=== PATIENT | female | born 1945 | race Caucasian/White ===

== ENCOUNTER 2020-07-11 01:21 | Emergency (ER) | payer MEDICARE, OTHER ==
--- NOTE | 2020-07-11 01:52 | EDM.PDOC ---
ED HPI GENERAL MEDICAL PROBLEM - General Chief Complaint: Upper Extremity Injury/Pain Stated Complaint: RT ARM INJURY Time Seen by Provider: 07/11/20 01:39 Source of Information: Reports: Patient History Limitations: Reports: No Limitations - History of Present Illness INITIAL COMMENTS - FREE TEXT/NARRATIVE: Patient is a 74-year-old female presents today for right arm pain. Patient that she is going to the bathroom and stumbled and hit the wall. Patient has the films her arm is falling apart. Patient states that her shoulder has no pain or elbows mostly the humerus. Patient denies any head or have any LOC. right arm Pain Score (Numeric/FACES): 8 - Related Data Allergies Allergy/AdvReac Type Severity Reaction Status Date / Time latex Allergy Rash Verified 07/11/20 01:33 Home Meds: Home Meds Aspirin 81 mg PO DAILY 03/24/15 [History] Diltiazem HCl [Diltiazem ER] 240 mg PO DAILY 03/24/15 [History] Lisinopril [Prinivil] 5 mg PO DAILY 03/24/15 [History] SitaGLIPtin [Januvia] 100 mg PO DAILY 03/24/15 [History] Acetaminophen [Tylenol] 650 mg PO Q6HR PRN 10 Days #40 cup 07/11/20 [Rx] Acetaminophen/oxyCODONE [Percocet 325-5 MG] 1 each PO Q8HR PRN 5 Days #15 tab 07/11/20 [Rx] Past Medical History Endocrine/Metabolic History: Reports: Hypothyroidism Social & Family History - Family History Family Medical History: No Pertinent Family History Review of Systems - Review of Systems Review Of Systems: See Below Constitutional: Reports: No Symptoms Eyes: Reports: No Symptoms Ears: Reports: No Symptoms Nose: Reports: No Symptoms Mouth/Throat: Reports: No Symptoms Respiratory: Reports: No Symptoms Cardiovascular: Reports: No Symptoms GI/Abdominal: Reports: No Symptoms Genitourinary: Reports: No Symptoms Musculoskeletal: Reports: Arm Pain Skin: Reports: No Symptoms Neurological: Reports: No Symptoms Psychiatric: Reports: No Symptoms ED EXAM, GENERAL - Physical Exam Exam: See Below Exam Limited By: No Limitations General Appearance: Alert, WD/WN, No Apparent Distress Respiratory/Chest: No Respiratory Distress Cardiovascular: Normal Peripheral Pulses, Regular Rate, Rhythm GI/Abdominal: Normal Bowel Sounds Extremities: Arm Pain. No: Normal Inspection (Obvious deformity of right humerus) Neurological: No Motor/Sensory Deficits ED TRAUMA EXTREMITY PROCEDURES - Splinting Right Upper Extremity Splint Site: humerus Pre-Procedure NV Status: Normal Post-Procedure NV Status: Normal Splint Material: Fiberglass Splint Design: Sling, Sling & Swathe Applied & Form Fitted By: Nurse Provider Post-Splint Application NV Check: NV Status Normal Complications: No Course - Vital Signs Last Recorded V/S: Last Vital Signs Temp 97.9 F 07/11/20 01:39 Pulse 89 07/11/20 01:39 Resp 16 07/11/20 01:39 BP 142/59 H 07/11/20 01:39 Pulse Ox 98 07/11/20 01:39 - Orders/Labs/Meds Meds: Medications Discontinued Medications Generic Name Dose Route Start Last Admin Trade Name Freq PRN Reason Stop Dose Admin Oxycodone/Acetaminophen 1 tab 07/11/20 02:19 07/11/20 02:26 Acetaminophen/Oxycodone 325-5 Mg Tab PO 07/11/20 02:20 1 tab ONETIME ONE Administration - Re-Assessments/Exams Free Text/Narrative Re-Assessment/Exam: 07/11/20 03:17 We spoke to [facility] orthopedics about patient's injury and he states patient can be placed in a splint and follow-up in clinic. Dr. Evans Departure - Departure Time of Disposition: 03:18 Disposition: Home, Self-Care 01 Condition: Good Clinical Impression: Humerus distal fracture - Discharge Information *PRESCRIPTION DRUG MONITORING PROGRAM REVIEWED*: Not Applicable *COPY OF PRESCRIPTION DRUG MONITORING REPORT IN PATIENT EVANGELISTA: Not Applicable Prescriptions: Acetaminophen/oxyCODONE [Percocet 325-5 MG] 1 each PO Q8HR PRN 5 Days #15 tab PRN Reason: Pain (Severe 7-10) Acetaminophen [Tylenol] 650 mg PO Q6HR PRN 10 Days #40 cup PRN Reason: Pain (Moderate 4-6) Instructions: Humerus Fracture Treated With Immobilization, [id number] Referrals: Mariann Hobson DO [Primary Care Provider] - Forms: ED Department Discharge Additional Instructions: The following information is given to patients seen in the emergency department who are being discharged to home. This information is to outline your options for follow-up care. We provide all patients seen in our emergency department with a follow-up referral. The need for follow-up, as well as the timing and circumstances, are variable depending upon the specifics of your emergency department visit. If you don't have a primary care physician on staff, we will provide you with a referral. We always advise you to contact your personal physician following an emergency department visit to inform them of the circumstance of the visit and for follow-up with them and/or the need for any referrals to a consulting specialist. The emergency department will also refer you to a specialist when appropriate. This referral assures that you have the opportunity for follow-up care with a specialist. All of these measure are taken in an effort to provide you with optimal care, which includes your follow-up. Under all circumstances we always encourage you to contact your private physician who remains a resource for coordinating your care. When calling for follow-up care, please make the office aware that this follow-up is from your recent emergency room visit. If for any reason you are refused follow-up, please contact the [facility] Emergency Department at and asked to speak to the emergency department charge nurse. Please follow up with your primary care physician. If you do not have a primary care physician, see below: Carlos Evans MD Orthopedic Surgery [phone] [address] [place] [id number] [address] You have a fracture of your humerus was the bone in your arm. You need to be seen by orthopedic surgeon in [place]. Above is the name of the surgeon that you can call and tell them that you were in the ER and if you need an appointment to be seen and you are determined to Shira this . If you have any increased pain or tingling in your arm please return to the ED immediately. Sepsis Event Note (ED) - Evaluation Sepsis Screening Result: No Definite Risk - Focused Exam Vital Signs: Vital Signs Temp Pulse Resp BP Pulse Ox 07/11/20 01:39 97.9 F 89 16 142/59 H 98 - Assessment/Plan Plan: Patient is a 74-year-old female who presents today for right arm pain. Patient has some deformity of the right humerus likely a result in her fracture. Patient has good pulse and good sensation.
[2020-07-11] MEDS ORDERED: Acetaminophen/oxyCODONE 325-5 MG Tab PO ONE (02:19)
--- NOTE | 2020-07-11 02:42 | CR ---
INDICATION: Deformity to right arm status post humerus injury from fall TECHNIQUE: Humerus radiograph 3 views right COMPARISON: None FINDINGS: Bone: There is a comminuted, angulated fracture present in the distal humeral diaphysis. Joint: The visualized glenohumeral and elbow joints are unremarkable, but the elbow joint is not profiled. If there is pain or tenderness in this region, dedicated views of the elbow are recommended. Soft tissue: The visualized hemithorax and soft tissues are unremarkable in appearance. No radiopaque foreign bodies are seen. IMPRESSION: 1. There is a comminuted, angulated fracture present in the distal humeral diaphysis. Dictated by Jones Snow MD @ 07/11/2020 2:42:13 AM Dictated by: Jones Snow MD @ 07/11/2020 02:42:16 (Electronically Signed)
[2020-07-11 04:24] VITALS: BP 141/60; PULSE 90
== END 2020-07-11 04:24 | disposition home or self-care (01) ==
LOC: MW.ED 01:21
DX: S42.491A Other displaced fracture of lower end of right humerus, initial encounter for closed fracture (principal); Z91.040 Latex allergy status; Z79.82 Long term (current) use of aspirin; Z79.899 Other long term (current) drug therapy; W18.09XA Striking against other object with subsequent fall, initial encounter; Y92.002 Bathroom of unspecified non-institutional (private) residence as the place of occurrence of the external cause
CPT/HCPCS: 29105; 73060; 99283; A9270

== ENCOUNTER 2020-07-13 13:30 | Observation (INO) | payer MEDICARE, OTHER ==
[2020-07-13] MEDS ORDERED: Sodium Chloride 0.9% 10 ML Syringe FLUSH PRN (13:35)
[2020-07-13] MEDS ORDERED: Sodium Chloride 0.9% 2.5 ML Syringe FLUSH PRN (13:35)
--- NOTE | 2020-07-13 13:46 | EDM.PDOC ---
ED HPI GENERAL MEDICAL PROBLEM - General Chief Complaint: Respiratory Problem Stated Complaint: SHORT OF BREATH Time Seen by Provider: 07/13/20 13:35 Source of Information: Reports: Patient History Limitations: Reports: No Limitations - History of Present Illness INITIAL COMMENTS - FREE TEXT/NARRATIVE: 74-year-old female past medical history of irc-leyiaqy-buvqdaazm diabetes, h ypertension presents for shortness of breath. Patient notes that a few days ago she was in the emergency department following a fall. She broke her right humerus which is currently in a sling. She has an appointment with orthopedics tomorrow. She also notes that she hit her head at this time but did not get CT imaging of her head or neck. She denies any headaches. She does note pain in her right arm. Her primary reason for coming to the emergency department today was that last night she developed shortness of breath. She denies any associated chest pain or fevers. No cough. No history of COPD or lung pathology. No swelling in her legs. No history of pulmonary embolism. Not on anticoagulation. right arm Pain Score (Numeric/FACES): 7 - Related Data Allergies Allergy/AdvReac Type Severity Reaction Status Date / Time latex Allergy Rash Verified 07/13/20 13:37 Home Meds: Home Meds Aspirin 81 mg PO DAILY 03/24/15 [History] Diltiazem HCl [Diltiazem ER] 240 mg PO DAILY 03/24/15 [History] Lisinopril [Prinivil] 5 mg PO DAILY 03/24/15 [History] SitaGLIPtin [Januvia] 100 mg PO DAILY 03/24/15 [History] Acetaminophen [Tylenol] 650 mg PO Q6HR PRN 10 Days #40 cup 07/11/20 [Rx] Acetaminophen/oxyCODONE [Percocet 325-5 MG] 1 each PO Q8HR PRN 5 Days #15 tab 07/11/20 [Rx] Past Medical History Endocrine/Metabolic History: Reports: Hypothyroidism Social & Family History - Family History Family Medical History: No Pertinent Family History - Caffeine Use Caffeine Use: Reports: None ED ROS GENERAL - Review of Systems Review Of Systems: Comprehensive ROS is negative, except as noted in HPI. ED EXAM, GENERAL - Physical Exam Exam: See Below Exam Limited By: No Limitations General Appearance: Alert, WD/WN, No Apparent Distress Eye Exam: Bilateral Eye: EOMI, PERRL Ears: Normal External Exam Nose: Normal Inspection Throat/Mouth: Normal Voice, No Airway Compromise Head: Normocephalic, Other (ecchymosis of R periorbital face) Neck: Normal Inspection, Non-Tender Respiratory/Chest: No Respiratory Distress, Lungs Clear, Normal Breath Sounds, No Accessory Muscle Use, Other (tachypneic to low 20s, speaks in full sentences) Cardiovascular: Normal Peripheral Pulses, Regular Rate, Rhythm GI/Abdominal: Soft, Non-Tender Extremities: Other (RUE in sling; no overt swelling, normal pulse, normal community center worker strength, normal sensation) Neurological: Alert, Normal Cognition Psychiatric: Normal Affect, Normal Mood Skin Exam: Warm, Dry, Intact, Normal Color #1 Interpretation EKG Date: 07/13/20 Time: 13:56 Rhythm: NSR Rate (Beats/Min): 78 [place]: Normal P-Wave: Present QRS: Normal ST-T: Normal QT: Normal MA/PQ Interval: 152 EKG Interpretation Comments: normal EKG Course - Vital Signs Last Recorded V/S: Last Vital Signs Temp 96.9 F 07/13/20 13:34 Pulse 79 07/13/20 13:34 Resp 20 07/13/20 13:34 BP 149/76 H 07/13/20 13:34 Pulse Ox 96 07/13/20 13:34 - Orders/Labs/Meds Orders: Active Orders 24 hr Category Date Time Status Cardiac Monitoring [RC] . DIRECTED Care 07/13/20 13:36 Active EKG Documentation Completion [RC] STAT Care 07/13/20 13:35 Active Pulse Oximetry [RC] ASDIRECTED Care 07/13/20 13:36 Active CORONAVIRUS COVID-19 MARIA INES [MOLEC] Stat Lab 07/13/20 16:35 Received Sodium Chloride 0.9% [Saline Flush] Med 07/13/20 13:35 Active 10 ml FLUSH ASDIRECTED PRN Sodium Chloride 0.9% [Saline Flush] Med 07/13/20 13:35 Active 2.5 ml FLUSH ASDIRECTED PRN Saline Lock Insert [OM.PC] Stat Oth 07/13/20 13:35 Ordered Medication Orders Sodium Chloride (Sodium Chloride 0.9% 10 Ml Syringe) 10 ml FLUSH ASDIRECTED PRN PRN Reason: Keep Vein Open Last Admin: 07/13/20 13:40 Dose: 10 ml Documented by: CARMEN Sodium Chloride (Sodium Chloride 0.9% 2.5 Ml Syringe) 2.5 ml FLUSH ASDIRECTED PRN PRN Reason: Keep Vein Open Last Admin: 07/13/20 13:40 Dose: 2.5 ml Documented by: CARMEN Labs: Laboratory Tests 07/13/20 07/13/20 07/13/20 Range/Units 13:45 13:45 13:45 WBC 8.59 (4.0-11.0) K/uL RBC 4.42 (4.30-5.90) M/uL Hgb 13.7 (12.0-16.0) g/dL Hct 42.1 (36.0-46.0) % MCV 95.2 (80.0-98.0) fL MCH 31.0 (27.0-32.0) pg MCHC 32.5 (31.0-37.0) g/dL RDW Std Deviation 49.1 (28.0-62.0) fl RDW Coeff of Jose 14 (11.0-15.0) % Plt Count 221 (150-400) K/uL MPV 9.80 (7.40-12.00) fL Neut % (Auto) 70.1 (48.0-80.0) % Lymph % (Auto) 14.0 L (16.0-40.0) % [place] % (Auto) 10.6 (0.0-15.0) % Eos % (Auto) 4.7 (0.0-7.0) % Baso % (Auto) 0.6 (0.0-1.5) % Neut # (Auto) 6.0 H (1.4-5.7) K/uL Lymph # (Auto) 1.2 (0.6-2.4) K/uL [place] # (Auto) 0.9 H (0.0-0.8) K/uL Eos # (Auto) 0.4 (0.0-0.7) K/uL Baso # (Auto) 0.1 (0.0-0.1) K/uL Nucleated RBC % 0.0 /100WBC Nucleated RBCs # 0 K/uL INR APTT (18.6-31.3) SEC D-Dimer, Quantitative (0.0-0.50) mg/L FEU Sodium 138 (136-145) mmol/L Potassium 4.2 (3.5-5.1) mmol/L Chloride 101 (98-107) mmol/L Carbon Dioxide 24.9 (21.0-32.0) mmol/L BUN 8 (7.0-18.0) mg/dL Creatinine 0.7 (0.6-1.0) mg/dL Est Cr Clr Drug Dosing 59.21 mL/min Estimated GFR (MDRD) > 60.0 ml/min Glucose 94 (74-106) mg/dL Calcium 9.7 (8.5-10.1) mg/dL Magnesium 1.6 L (1.8-2.4) mg/dL Total Bilirubin 0.4 (0.2-1.0) mg/dL AST 20 (15-37) IU/L ALT 22 (14-63) IU/L Alkaline Phosphatase 125 H (46-116) U/L Troponin I < 0.050 (0.000-0.056) ng/mL B-Natriuretic Peptide 3 (<100) PG/ML Total Protein 8.0 (6.4-8.2) g/dL Albumin 3.5 (3.4-5.0) g/dL Globulin 4.5 H (2.6-4.0) g/dL Albumin/Globulin Ratio 0.8 L (0.9-1.6) 07/13/20 Range/Units 14:08 WBC (4.0-11.0) K/uL RBC (4.30-5.90) M/uL Hgb (12.0-16.0) g/dL Hct (36.0-46.0) % MCV (80.0-98.0) fL MCH (27.0-32.0) pg MCHC (31.0-37.0) g/dL RDW Std Deviation (28.0-62.0) fl RDW Coeff of Jose (11.0-15.0) % Plt Count (150-400) K/uL MPV (7.40-12.00) fL Neut % (Auto) (48.0-80.0) % Lymph % (Auto) (16.0-40.0) % [place] % (Auto) (0.0-15.0) % Eos % (Auto) (0.0-7.0) % Baso % (Auto) (0.0-1.5) % Neut # (Auto) (1.4-5.7) K/uL Lymph # (Auto) (0.6-2.4) K/uL [place] # (Auto) (0.0-0.8) K/uL Eos # (Auto) (0.0-0.7) K/uL Baso # (Auto) (0.0-0.1) K/uL Nucleated RBC % /100WBC Nucleated RBCs # K/uL INR 0.99 APTT 26.0 (18.6-31.3) SEC D-Dimer, Quantitative 1.39 H (0.0-0.50) mg/L FEU Sodium (136-145) mmol/L Potassium (3.5-5.1) mmol/L Chloride (98-107) mmol/L Carbon Dioxide (21.0-32.0) mmol/L BUN (7.0-18.0) mg/dL Creatinine (0.6-1.0) mg/dL Est Cr Clr Drug Dosing mL/min Estimated GFR (MDRD) ml/min Glucose (74-106) mg/dL Calcium (8.5-10.1) mg/dL Magnesium (1.8-2.4) mg/dL Total Bilirubin (0.2-1.0) mg/dL AST (15-37) IU/L ALT (14-63) IU/L Alkaline Phosphatase (46-116) U/L Troponin I (0.000-0.056) ng/mL B-Natriuretic Peptide (<100) PG/ML Total Protein (6.4-8.2) g/dL Albumin (3.4-5.0) g/dL Globulin (2.6-4.0) g/dL Albumin/Globulin Ratio (0.9-1.6) Meds: Medications Generic Name Dose Route Start Last Admin Trade Name Freq PRN Reason Stop Dose Admin Sodium Chloride 10 ml 07/13/20 13:35 07/13/20 13:40 Sodium Chloride 0.9% 10 Ml Syringe FLUSH 10 ml ASDIRECTED PRN Administration Keep Vein Open Sodium Chloride 2.5 ml 07/13/20 13:35 07/13/20 13:40 Sodium Chloride 0.9% 2.5 Ml Syringe FLUSH 2.5 ml ASDIRECTED PRN Administration Keep Vein Open Discontinued Medications Generic Name Dose Route Start Last Admin Trade Name Pierre PRN Reason Stop Dose Admin Acetaminophen 1,000 mg 07/13/20 13:55 07/13/20 14:10 Acetaminophen 500 Mg Tab PO 07/13/20 13:56 1,000 mg ONETIME ONE Administration Sodium Chloride 1,000 mls @ 999 mls/hr 07/13/20 14:53 07/13/20 15:02 Normal Saline IV 07/13/20 15:53 999 mls/hr .Bolus ONE Administration Iopamidol 100 ml 07/13/20 15:38 07/13/20 15:39 Iopamidol 755 Mg/Ml 500 Ml Multipack Bottle IVPUSH 07/13/20 15:39 100 ml ONETIME STA Administration Lorazepam 0.5 mg 07/13/20 16:34 Lorazepam 2 Mg/Ml Sdv IVPUSH 07/13/20 16:35 ONETIME ONE Morphine Sulfate 4 mg 07/13/20 14:44 07/13/20 15:43 Morphine 4 Mg/Ml Syringe IVPUSH 07/13/20 14:45 Not Given ONETIME ONE Morphine Sulfate 4 mg 07/13/20 15:06 07/13/20 15:14 Morphine 4 Mg/Ml Syringe IVPUSH 07/13/20 15:07 4 mg ONETIME ONE Administration Ondansetron HCl 4 mg 07/13/20 15:40 07/13/20 15:43 Ondansetron 4 Mg/2 Ml Sdv IVPUSH 07/13/20 15:41 4 mg ONETIME ONE Administration - Re-Assessments/Exams Free Text/Narrative Re-Assessment/Exam: 07/13/20 14:37 D-dimer is quite elevated. Will get CT of the chest rule pulmonary embolism. 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 Will admit for obs overnight. Departure - Departure Time of Disposition: 16:43 Disposition: Home, Self-Care 01 Condition: Good Clinical Impression: Shortness of breath - Discharge Information Referrals: Mariann Hobson DO [Primary Care Provider] - Forms: ED Department Discharge Sepsis Event Note (ED) - Evaluation Sepsis Screening Result: No Definite Risk - Focused Exam Vital Signs: Vital Signs Temp Pulse Resp BP Pulse Ox 07/13/20 13:34 96.9 F 79 20 149/76 H 96 - My Orders Last 24 Hours: My Active Orders 07/13/20 13:35 EKG Documentation Completion [RC] STAT Sodium Chloride 0.9% [Saline Flush] 10 ml FLUSH ASDIRECTED PRN Sodium Chloride 0.9% [Saline Flush] 2.5 ml FLUSH ASDIRECTED PRN Saline Lock Insert [OM.PC] Stat 07/13/20 13:36 Cardiac Monitoring [RC] . DIRECTED Pulse Oximetry [RC] ASDIRECTED 07/13/20 16:35 CORONAVIRUS COVID-19 MARIA INES [MOLEC] Stat - Assessment/Plan Last 24 Hours: My Active Orders 07/13/20 13:35 EKG Documentation Completion [RC] STAT Sodium Chloride 0.9% [Saline Flush] 10 ml FLUSH ASDIRECTED PRN Sodium Chloride 0.9% [Saline Flush] 2.5 ml FLUSH ASDIRECTED PRN Saline Lock Insert [OM.PC] Stat 07/13/20 13:36 Cardiac Monitoring [RC] . DIRECTED Pulse Oximetry [RC] ASDIRECTED 07/13/20 16:35 CORONAVIRUS COVID-19 MARIA INES [MOLEC] Stat
[2020-07-13] MEDS ORDERED: Acetaminophen 500 MG Tab PO ONE (13:55)
[2020-07-13 14:17] LABS: BLOOD UREA NITROGEN,BUN 8 mg/dL (7.0-18.0); CARBON DIOXIDE,CO2 24.9 mmol/L (21.0-32.0); CHLORIDE,CL 101 mmol/L (98-107); GLUCOSE RANDOM 94 mg/dL (74-106); POTASSIUM,K 4.2 mmol/L (3.5-5.1); SODIUM,NA 138 mmol/L (136-145)
--- NOTE | 2020-07-13 14:31 | CR ---
INDICATION: Shortness of breath. Fractured humerus on recent right humerus films 07/11/2020. Technique : AP portable chest x-ray FINDINGS: The fracture at the distal right humerus seen on recent right humerus films 07/11/2020 is not included on this exam. The patient`s right hand obscures the left lower chest. A small amount of nodular and platelike atelectasis and scarring in the left lung base. Lungs are otherwise clear without infiltrate or consolidation. Opaque density projected in the left upper chest should lie in the patient`s skin surface. Moderate degenerative changes in the shoulders greater on the right. Heart size normal. Age-indeterminate left mid rib fracture. Remainder negative. Dictated by Guillermo Shah MD @ 07/13/2020 2:29:[address] Guillermo Shah @ Jul 13 2020 2:29PM
[2020-07-13] MEDS ORDERED: Morphine 4 MG/ML Syringe IVPUSH ONE ×2 (14:44→15:06)
[2020-07-13] MEDS ORDERED: Sodium Chloride 0.9% 1,000 ML IV ONE (14:53)
--- NOTE | 2020-07-13 15:02 | CT ---
INDICATION: Fall. TECHNIQUE: CT head without IV contrast. FINDINGS: Degenerate changes at the C1-C2 vertebral level. No intracranial hemorrhage, edema, or mass effect. Moderate cerebral atrophy greatest in a posterior parietal lobes symmetrically right greater the left where there are prominent sulci. The lateral ventricles are mildly prominent consistent with the degree of atrophy. Remainder negative. IMPRESSION: 1. No acute intracranial disease. 2. Moderate cerebral atrophy greatest in the superior posterior parietal lobes where there are prominent sulci. Other findings as above. Please note that all CT scans at this facility use dose modulation, iterative reconstruction, and/or weight-based dosing when appropriate to reduce radiation dose to as low as reasonably achievable. Dictated by Guillermo Shah MD @ 07/13/2020 2:59:[address] Guillermo Shah @ Jul 13 2020 2:59PM
[2020-07-13] MEDS ORDERED: Iopamidol 755 MG/ML 500 ML Multipack Bottle IVPUSH STA (15:38)
[2020-07-13] MEDS ORDERED: Ondansetron 4 MG/2 ML SDV IVPUSH ONE (15:40)
--- NOTE | 2020-07-13 16:12 | CT ---
HISTORY: Shortness of breath. COMPARISON: None. TECHNIQUE: CT of the chest, PE protocol. 100 cc of Isovue-370 IV. Coronal/sagittal reconstruction images. FINDINGS: No pulmonary emboli are demonstrated. No evidence for right heart strain. No pulmonary infarct. Main pulmonary artery measures 32 mm in dimension. This may indicate pulmonary arterial hypertension. There is no pleural or pericardial effusion. There is no thoracic aortic aneurysm or dissection. Degenerative calcific plaque is present in the thoracic aorta. No mass at the thoracic inlet. Lung windows demonstrate no endobronchial mass. There is excessive collapse of the left mainstem bronchus on image 61, series 402. 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 There is bibasilar dependent atelectasis. There is no honeycomb formation. Mild centrilobular emphysema. There is no suspicious pulmonary nodule or acute airspace disease. Linear scar atelectasis in the right middle lobe. Evaluation of the upper abdomen demonstrates no solid hepatic mass. No radiopaque gallstone. 6 mm lesion in the left hepatic lobe on image 194, series 401, too small to further characterize. No upper abdominal lymphadenopathy. Colonic diverticulosis. No associated inflammatory changes. No pancreatic mass or glandular atrophy. Bone windows demonstrate osteophytic spurring at the endplates of the thoracic spine. No suspicious bone lesions are seen. The vertebral body heights are maintained on sagittal reconstruction images. Manubrium and body of the sternum are intact. IMPRESSION: 1. No pulmonary emboli. 2. No evidence on CT for right heart strain. No pulmonary infarct. 3. No thoracic lymphadenopathy or acute airspace disease. 4. Excessive collapse of the left mainstem bronchus. 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 See image 61, series 402. No endobronchial mass or resorptive atelectasis. 5. Incidental diverticulosis of the colon. No inflammatory changes in the upper abdomen. Please note that all CT scans at this facility use dose modulation, iterative reconstruction, and/or weight-based dosing when appropriate to reduce radiation dose to as low as reasonably achievable. Dictated by José Braxton MD @ 07/13/2020 4:11:[address] José Braxton @ Jul 13 2020 4:11PM
--- NOTE | 2020-07-13 16:33 | CT ---
INDICATION: Fall. TECHNIQUE: CT cervical spine without contrast. COMPARISON: None FINDINGS: No acute fracture. There is straightening of the cervical lordosis which can be seen with muscle spasm and/or C-collar placement. No evidence of traumatic malalignment. No suspicious bone lesion. Multilevel anterior endplate osteophytic change. Mild to moderate loss of intervertebral disc space height at C5-C6. Posterior disc osteophyte complex at C5-C6. Facet joints are fairly well maintained. Emphysematous change in the lung apices. The airway appears patent. IMPRESSION: 1. No acute fracture. 2. Straightening of the normal cervical lordosis can be seen with muscle spasm and/or C-collar placement. There is otherwise no evidence of traumatic malalignment. 3. Degenerative changes most significant at C5-C6. Please note that all CT scans at this facility use dose modulation, iterative reconstruction, and/or weight-based dosing when appropriate to reduce radiation dose to as low as reasonably achievable. Dictated by Alexander Thornton MD @ 07/13/2020 4:32:[address] Alexander Thornton @ Jul 13 2020 4:32PM
[2020-07-13] MEDS ORDERED: LORazepam 2 MG/ML SDV IVPUSH ONE (16:34)
[2020-07-13] MEDS ORDERED: Ondansetron 4 MG/2 ML SDV IVPUSH PRN (17:44)
[2020-07-13] MEDS ORDERED: Enoxaparin 40 MG/0.4 ML Syringe SUBCUT SCH ×2 (17:45→20:00)
[2020-07-13] MEDS ORDERED: Acetaminophen/oxyCODONE 325-5 MG Tab PO PRN ×2 (17:52→20:00)
--- NOTE | 2020-07-13 17:58 | PCM.HP.2 ---
H&P History of Present Illness - General Date of Service: 07/13/20 Admit Problem/Dx: Admission Diagnosis/Problem Admission Diagnosis/Problem Shortness of breath Source of Information: Patient History Limitations: Reports: No Limitations - History of Present Illness Initial Comments - Free Text/Narative: Patient is a rich 74-year-old female with a past medical history of no [id number] diabetes, hypertension, coronary artery disease and hyperlipidemia. Was recently discharged from the hospital on July 11, 2020 status post significant fall causing her to have a distal humeral fracture on the right side. Patient was evaluated in the ED with appropriate splinting and placing joint in sling given appropriate pain medications. Injury took place 3 days prior, yesterday evening noted to have some shortness of breath. Denied any associated cough, chest pain, dizziness, fever, chills, increased heart rate, swelling of her lower extremities. As per patient she is to see orthopedics in [place] tomorrow. Patient was thoroughly worked up in the ED, with appropriate labs with normal CBC, CMP, negative tropes, negative BMP, normal INR, normal EKG. D-dimer was e levated prompting CT angio for PE which was found to be negative. Findings indicated some possible bronchomalacia, however patient denies any associated cough, increased sputum production, no COPD history or lung disease. Furthermore, patient also shared that during previous incident causing injury she also hit her head but did not have head and neck imaging at the time. Therefore, ER physician appropriately ordered CT head as well as C-spine and chest x-ray imaging all found to be grossly normal. Patient was seen and examined at bedside, all questions and concerns were addressed, patient will be admitted overnight for observation. Location: Reports: Upper Extremity, Right Quality: Reports: Ache Severity: Severe Improves with: Reports: Immobilization, Medication, Rest Worsens with: Reports: Movement Context: Denies: Sick Contact Associated Symptoms: Reports: Shortness of Breath (Experienced last night). De nies: Chest Pain, Cough, cough w sputum, Fever/Chills, Headaches right arm Pain Score (Numeric/FACES): 7 - Related Data Allergies/Adverse Reactions: Allergies Allergy/AdvReac Type Severity Reaction Status Date / Time latex Allergy Rash Verified 07/13/20 18:08 Home Medications: Home Meds Aspirin 81 mg PO DAILY 02/09/16 [History] Diltiazem HCl [Diltiazem ER] 240 mg PO DAILY 03/24/15 [History] Lisinopril [Prinivil] 5 mg PO DAILY 03/24/15 [History] SitaGLIPtin [Januvia] 100 mg PO DAILY 03/24/15 [History] Acetaminophen [Tylenol] 650 mg PO Q6HR PRN 10 Days #40 cup 07/11/20 [Rx] Acetaminophen/oxyCODONE [Percocet 325-5 MG] 1 each PO Q8HR PRN 5 Days #15 tab 07/11/20 [Rx] Past Medical History HEENT History: Reports: Impaired Vision Cardiovascular History: Reports: Afib, High Cholesterol Respiratory History: Reports: None Gastrointestinal History: Reports: None Genitourinary History: Reports: None COUNTY ORDINARY History: Reports: None Musculoskeletal History: Reports: None Neurological History: Reports: None Psychiatric History: Reports: None Endocrine/Metabolic History: Reports: Diabetes, Type II, Hypothyroidism Oncologic (Cancer) History: Reports: None Dermatologic History: Reports: None - Infectious Disease History Infectious Disease History: Reports: Measles, Mumps - Past Surgical History Head Surgeries/Procedures: Reports: None HEENT Surgical History: Reports: None Cardiovascular Surgical History: Reports: None Respiratory Surgical History: Reports: None GI Surgical History: Reports: None Female Surgical History: Reports: None Endocrine Surgical History: Reports: None Neurological Surgical History: Reports: None Musculoskeletal Surgical History: Reports: None Oncologic Surgical History: Reports: None Dermatological Surgical History: Reports: None Social & Family History - Family History Family Medical History: No Pertinent Family History - Tobacco Use Tobacco Use Status *Q: Never Tobacco User - Caffeine Use Caffeine Use: Reports: None - Recreational Drug Use Recreational Drug Use: No H&P Review of Systems - Review of Systems: Review Of Systems: See Below General: Reports: No Symptoms HEENT: Reports: No Symptoms Pulmonary: Reports: Shortness of Breath. Denies: Wheezing, Pleuritic Chest Pain, Cough, Sputum, Hemoptysis Cardiovascular: Reports: No Symptoms Gastrointestinal: Reports: No Symptoms Genitourinary: Reports: No Symptoms Musculoskeletal: Reports: Arm Pain (Correlates with injury), Joint Pain Skin: Reports: Cyanosis Psychiatric: Reports: No Symptoms Neurological: Reports: No Symptoms Hematologic/Lymphatic: Reports: No Symptoms Immunologic: Reports: No Symptoms Exam - Exam Exam: See Below - Vital Signs Vital Signs: Last Vital Signs Temp 96.9 F 07/13/20 13:34 Pulse 79 07/13/20 13:34 Resp 20 07/13/20 13:34 BP 149/76 H 07/13/20 13:34 Pulse Ox 96 07/13/20 13:34 Weight: 179 lb - Exam Quality Assessment: DVT Prophylaxis General: Alert, Oriented, Cooperative HEENT: Conjunctiva Clear, EOMI, Hearing Intact, Mucosa Moist & [place], Posterior Pharynx Clear, PERRLA Neck: Supple, Trachea Midline, Full Range of Motion. No: Lymphadenopathy, JVD Lungs: Clear to Auscultation, Normal Respiratory Effort. No: Decreased Breath Sounds, Crackles, Rales, Rhonchi, Wheezing Cardiovascular: Regular Rate, Regular Rhythm, Normal S1, Normal S2 GI/Abdominal Exam: Normal Bowel Sounds, Soft, Non-Tender, No Organomegaly Back Exam: Normal Inspection, Full Range of Motion Extremities: Normal Capillary Refill, Arm Pain, Limited Range of Motion. No: Cristian's Sign, Leg Pain, Mottled, Pallor, Redness Peripheral Pulses: 2+: Carotid (L), Carotid (R), Brachial (L), Brachial (R), Radial (L), Radial (R), Popliteal (L), Popliteal (R), Dorsalis Pedis (L), Dorsa lis Pedis (R) Skin: Warm, Dry, Intact Neurological: Cranial Nerves Intact, Reflexes Equal Bilateral Neuro Extensive - Mental Status: Alert, Oriented x3, Normal Mood/Affect, Normal Cognition, Memory Intact Neuro Extensive - Motor, Sensory, Reflexes: CN II-XII Intact, Normal Gait, Normal Reflexes DTR: 2+: Achilles (L), Achilles (R) Psychiatric: Alert, Normal Affect, Normal Mood - Patient Data Lab Results Last 24 hrs: Laboratory Results - last 24 hr 07/13/20 07/13/20 07/13/20 Range/Units 13:45 13:45 13:45 WBC 8.59 (4.0-11.0) K/uL RBC 4.42 (4.30-5.90) M/uL Hgb 13.7 (12.0-16.0) g/dL Hct 42.1 (36.0-46.0) % MCV 95.2 (80.0-98.0) fL MCH 31.0 (27.0-32.0) pg MCHC 32.5 (31.0-37.0) g/dL RDW Std Deviation 49.1 (28.0-62.0) fl RDW Coeff of Jose 14 (11.0-15.0) % Plt Count 221 (150-400) K/uL MPV 9.80 (7.40-12.00) fL Neut % (Auto) 70.1 (48.0-80.0) % Lymph % (Auto) 14.0 L (16.0-40.0) % Walton % (Auto) 10.6 (0.0-15.0) % Eos % (Auto) 4.7 (0.0-7.0) % Baso % (Auto) 0.6 (0.0-1.5) % Neut # (Auto) 6.0 H (1.4-5.7) K/uL Lymph # (Auto) 1.2 (0.6-2.4) K/uL Walton # (Auto) 0.9 H (0.0-0.8) K/uL Eos # (Auto) 0.4 (0.0-0.7) K/uL Baso # (Auto) 0.1 (0.0-0.1) K/uL Nucleated RBC % 0.0 /100WBC Nucleated RBCs # 0 K/uL INR APTT (18.6-31.3) SEC D-Dimer, Quantitative (0.0-0.50) mg/L FEU Sodium 138 (136-145) mmol/L Potassium 4.2 (3.5-5.1) mmol/L Chloride 101 (98-107) mmol/L Carbon Dioxide 24.9 (21.0-32.0) mmol/L BUN 8 (7.0-18.0) mg/dL Creatinine 0.7 (0.6-1.0) mg/dL Est Cr Clr Drug Dosing 59.21 mL/min Estimated GFR (MDRD) > 60.0 ml/min Glucose 94 (74-106) mg/dL Calcium 9.7 (8.5-10.1) mg/dL Magnesium 1.6 L (1.8-2.4) mg/dL Total Bilirubin 0.4 (0.2-1.0) mg/dL AST 20 (15-37) IU/L ALT 22 (14-63) IU/L Alkaline Phosphatase 125 H (46-116) U/L Troponin I < 0.050 (0.000-0.056) ng/mL B-Natriuretic Peptide 3 (<100) PG/ML Total Protein 8.0 (6.4-8.2) g/dL Albumin 3.5 (3.4-5.0) g/dL Globulin 4.5 H (2.6-4.0) g/dL Albumin/Globulin Ratio 0.8 L (0.9-1.6) SARS-CoV-2 RNA (MARIA INES) (NEGATIVE) 07/13/20 07/13/20 Range/Units 14:08 16:35 WBC (4.0-11.0) K/uL RBC (4.30-5.90) M/uL Hgb (12.0-16.0) g/dL Hct (36.0-46.0) % MCV (80.0-98.0) fL MCH (27.0-32.0) pg MCHC (31.0-37.0) g/dL RDW Std Deviation (28.0-62.0) fl RDW Coeff of Jose (11.0-15.0) % Plt Count (150-400) K/uL MPV (7.40-12.00) fL Neut % (Auto) (48.0-80.0) % Lymph % (Auto) (16.0-40.0) % Walton % (Auto) (0.0-15.0) % Eos % (Auto) (0.0-7.0) % Baso % (Auto) (0.0-1.5) % Neut # (Auto) (1.4-5.7) K/uL Lymph # (Auto) (0.6-2.4) K/uL Walton # (Auto) (0.0-0.8) K/uL Eos # (Auto) (0.0-0.7) K/uL Baso # (Auto) (0.0-0.1) K/uL Nucleated RBC % /100WBC Nucleated RBCs # K/uL INR 0.99 APTT 26.0 (18.6-31.3) SEC D-Dimer, Quantitative 1.39 H (0.0-0.50) mg/L FEU Sodium (136-145) mmol/L Potassium (3.5-5.1) mmol/L Chloride (98-107) mmol/L Carbon Dioxide (21.0-32.0) mmol/L BUN (7.0-18.0) mg/dL Creatinine (0.6-1.0) mg/dL Est Cr Clr Drug Dosing mL/min Estimated GFR (MDRD) ml/min Glucose (74-106) mg/dL Calcium (8.5-10.1) mg/dL Magnesium (1.8-2.4) mg/dL Total Bilirubin (0.2-1.0) mg/dL AST (15-37) IU/L ALT (14-63) IU/L Alkaline Phosphatase (46-116) U/L Troponin I (0.000-0.056) ng/mL B-Natriuretic Peptide (<100) PG/ML Total Protein (6.4-8.2) g/dL Albumin (3.4-5.0) g/dL Globulin (2.6-4.0) g/dL Albumin/Globulin Ratio (0.9-1.6) SARS-CoV-2 RNA (MARIA INES) NEGATIVE (NEGATIVE) Result Diagrams: 07/13/20 13:45 07/13/20 13:45 Sepsis Event Note - Evaluation Sepsis Screening Result: No Definite Risk - Focused Exam Vital Signs: Vital Signs Temp Pulse Resp BP Pulse Ox 07/13/20 13:34 96.9 F 79 20 149/76 H 96 - Problem List (1) Shortness of breath SNOMED Code(s): 873322523 ICD Code: R06.02 - SHORTNESS OF BREATH Status: Acute Current Visit: Yes (2) Humerus distal fracture SNOMED Code(s): 205336968 ICD Code: S42.409A - UNSP FRACTURE OF LOWER END OF UNSP HUMERUS, INIT FOR CLOS FX Status: Acute Current Visit: No Problem List Initiated/Reviewed/Updated: Yes Orders Last 24hrs: Active Orders 24 hr Category Date Time Status Patient Status [ADT] Routine ADT 07/13/20 16:43 Active Patient Status [ADT] Routine ADT 07/13/20 17:45 Active Blood Glucose Check, Bedside [RC] TIDMEALS Care 07/13/20 17:44 Active Cardiac Monitoring [RC] CONTINUOUS Care 07/13/20 17:46 Active Cardiac Monitoring [RC] Q8H Care 07/13/20 13:36 Active Oxygen Therapy [RC] PRN Care 07/13/20 17:45 Active Pulse Oximetry [RC] ASDIRECTED Care 07/13/20 13:36 Active Pulse Oximetry [RC] CONTINUOUS Care 07/13/20 17:46 Active Telemetry Monitoring [Cardiac Monitoring] [RC] . Care 07/13/20 17:09 Active DIRECTED Up ad Melodie [RC] ASDIRECTED Care 07/13/20 17:44 Active VTE/DVT Education [RC] PER UNIT ROUTINE Care 07/13/20 17:45 Active Vital Signs [RC] Q4H Care 07/13/20 17:45 Active Heart Healthy Diet [DIET] Diet 07/13/20 Dinner Active CBC W/O DIFF,HEMOGRAM [HEME] AM Lab 07/14/20 05:11 Ordered COMPREHENSIVE METABOLIC PN,CMP [CHEM] AM Lab 07/14/20 05:11 Ordered Acetaminophen/oxyCODONE [Percocet 325-5 MG] Med 07/13/20 17:52 Ordered 1 tab PO Q6H PRN Aspirin Med 07/14/20 09:00 Active 81 mg PO DAILY Diltiazem HCl [Diltiazem 24Hr ER] Med 07/14/20 09:00 Active 240 mg PO DAILY Enoxaparin [Lovenox] Med 07/13/20 17:45 Active 40 mg SUBCUT Q24H Insulin Regular, Human [NovoLIN R] Med 07/14/20 07:30 Ordered DOSE unit SUBCUT BIDAC Ondansetron [Zofran] Med 07/13/20 17:44 Active 4 mg IVPUSH Q4H PRN Sodium Chloride 0.9% [Saline Flush] Med 07/13/20 13:35 Active 10 ml FLUSH ASDIRECTED PRN Sodium Chloride 0.9% [Saline Flush] Med 07/13/20 13:35 Active 2.5 ml FLUSH ASDIRECTED PRN lisinopriL [Prinivil] Med 07/14/20 09:00 Active 5 mg PO DAILY Saline Lock Insert [OM.PC] Stat Oth 07/13/20 13:35 Ordered Resuscitation Status Routine Resus Stat 07/13/20 17:44 Ordered Medication Orders Aspirin (Aspirin 81 Mg Tab.Chew) 81 mg PO DAILY [facility] Enoxaparin Sodium (Enoxaparin 40 Mg/0.4 Ml Syringe) 40 mg SUBCUT Q24H [facility] Insulin Human Regular (Insulin Regular, Human 100 Units/Ml 10 Ml Vial) unit SUBCUT BIDAC [facility]; Protocol Lisinopril (Lisinopril 5 Mg Tab) 5 mg PO DAILY [facility] Non-Formulary Medication (Diltiazem Hcl [Diltiazem 24hr Er]) 240 mg PO DAILY [facility] Ondansetron HCl (Ondansetron 4 Mg/2 Ml Sdv) 4 mg IVPUSH Q4H PRN PRN Reason: NAUSEA Oxycodone/Acetaminophen (Acetaminophen/Oxycodone 325-5 Mg Tab) 1 tab PO Q6H PRN Sodium Chloride (Sodium Chloride 0.9% 10 Ml Syringe) 10 ml FLUSH ASDIRECTED PRN PRN Reason: Keep Vein Open Last Admin: 07/13/20 13:40 Dose: 10 ml Documented by: CARMEN Sodium Chloride (Sodium Chloride 0.9% 2.5 Ml Syringe) 2.5 ml FLUSH ASDIRECTED PRN PRN Reason: Keep Vein Open Last Admin: 07/13/20 13:40 Dose: 2.5 ml Documented by: CARMEN Assessment/Plan Comment:: 74-year-old female with past medical history of diabetes mellitus, hypertension, hyperlipidemia and coronary artery disease. Was admitted for complaints of shortness of breath status post recent distal humeral fracture since 3 days. PE was ruled out per CT angio. 1. Shortness of breath: Vitally stable, chest examination was unremarkable, patient denied any cough, sputum, or previous history of pulmonary disease. Chest x-ray: No infiltrates or consolidation appreciated. Per CT angio: Negative for PE, possible bronchomalacia Continue to monitor overnight with telemetry, continuous pulse ox and oxygen as needed. Suspect that patient may be splinting due to recent injury, therefore will provide appropriate pain management and encourage patient to use incentive spi rometry. 2. Right distal humeral fracture status post 3 times days: Limited range of motion, to see orthopedics as outpatient tomorrow. Continue 5 oxycodone 325 acetaminophen Tylenol as needed 3. Past medical history of diabetes mellitus, will hold home medications and place patient on sliding scale insulin 3 times daily before meals. 4. Past medical history of coronary artery disease, hypertension and hyperlipidemia: Resume all home meds except for diabetes medication. DVT prophylaxis: Lovenox 40 subcu Diet: Heart healthy Activity: Up ad melodie. GI prophylaxis: Protonix 40 Cardiac monitoring CODE STATUS: DNR/DNI Dispo: Likely discharge tomorrow if patient remains stable overnight.
[2020-07-13] MEDS ORDERED: Glucagon,Human Recombinant 1 MG Vial IM PRN (18:15)
[2020-07-13] MEDS ORDERED: 50% Dextrose in Water 50 ML Syringe IV PRN (18:15)
[2020-07-13] MEDS: Insulin Aspart 100 Units/ML 3 ML Pen SUBCUT SCH (19:06)
[2020-07-13] MEDS ORDERED: Morphine 2 MG/ML SYRINGE IVPUSH PRN (23:24)
[2020-07-13] MEDS: Acetaminophen 325 MG Tab PO PRN (23:45)
[2020-07-14] MEDS: oxyCODONE 5 MG Tab PO PRN ×2 (03:43→14:08)
[2020-07-14] MEDS: Acetaminophen 325 MG Tab PO PRN ×2 (05:25→09:37)
[2020-07-14 07:06] LABS: BLOOD UREA NITROGEN,BUN 10 mg/dL (7.0-18.0); CHLORIDE,CL 102 mmol/L (98-107); GLUCOSE RANDOM 129 mg/dL (74-106); POTASSIUM,K 4.2 mmol/L (3.5-5.1); SODIUM,NA 137 mmol/L (136-145)
[2020-07-14] MEDS ORDERED: Insulin Regular, Human 100 Units/ML 10 ML Vial SUBCUT SCH (07:30)
[2020-07-14] MEDS: Insulin Aspart 100 Units/ML 3 ML Pen SUBCUT SCH ×2 (08:12→14:08)
[2020-07-14] MEDS ORDERED: Pantoprazole 40 MG in Sodium Chloride 0.9% 10 ML IV SCH (09:00)
[2020-07-14] MEDS ORDERED: DILTIAZEM HCL 240 MG PO SCH (09:00)
[2020-07-14] MEDS ORDERED: Diltiazem 120 MG Cap.CD PO SCH (09:00)
[2020-07-14] MEDS ORDERED: Lisinopril 5 MG Tab PO SCH (09:00)
[2020-07-14] MEDS ORDERED: Aspirin 81 MG Tab.Chew PO SCH (09:00)
--- NOTE | 2020-07-14 11:31 | PCM.DCSUM1 ---
Discharge Summary - Hospital Course HPI Initial Comments: 74-year-old female past medical history of mvo-wcuwcrw-ughpanaif diabetes, hypertension presents for shortness of breath. Patient notes that a few days ago she was in the emergency department following a fall. She broke her right humerus which is currently in a sling. She has an appointment with orthopedics tomorrow. She also notes that she hit her head at this time but did not get CT imaging of her head or neck. She denies any headaches. She does note pain in her right arm. Her primary reason for coming to the emergency department today was that last night she developed shortness of breath. She denies any associated chest pain or fevers. No cough. No history of COPD or lung pathology. No swelling in her legs. No history of pulmonary embolism. Not on anticoagulation. Brief History: Patient is a rich 74-year-old female with a past medical history of qgg-[id number]-wowsemrwp diabetes, hypertension, coronary artery disease and hyperlipidemia. Was recently discharged from the hospital on July 11, 2020 status post significant fall causing her to have a distal humeral fracture on the right side. Patient was evaluated in the ED with appropriate splinting and placing joint in sling given appropriate pain medications. Injury took place 3 days prior, yesterday evening noted to have some shortness of breath. Denied any associated cough, chest pain, dizziness, fever, chills, increased heart rate, swelling of her lower extremities. As per patient she is to see orthopedics in [place] tomorrow. Patient was thoroughly worked up in the ED, with appropriate labs with normal CBC, CMP, negative tropes, negative BMP, normal INR, normal EKG. D-dimer was elevated prompting CT angio for PE which was found to be negative. Findings indicated some possible bronchomalacia, however patient denies any associated cough, increased sputum production, no COPD history or lung disease. Furthermore, patient also shared that during previous incident causing injury she also hit her head but did not have head and neck i maging at the time. Therefore, ER physician appropriately ordered CT head as well as C-spine and chest x-ray imaging all found to be grossly normal. Patient was seen and examined at bedside, all questions and concerns were addressed, patient will be admitted overnight for observation. Diagnosis: Stroke: No - Discharge Data Discharge Date: 07/14/20 Discharge Disposition: Home, Self-Care 01 Condition: Good - Referral to Home Health Primary Care Physician: Mariann Hobson DO - Discharge Diagnosis/Problem(s) (1) Shortness of breath SNOMED Code(s): 512850562 ICD Code: R06.02 - SHORTNESS OF BREATH Status: Acute Current Visit: Yes (2) Humerus distal fracture SNOMED Code(s): 784619517 ICD Code: S42.409A - UNSP FRACTURE OF LOWER END OF UNSP HUMERUS, INIT FOR CLOS FX Status: Acute Current Visit: No - Patient Instructions Diet: Heart Healthy Diet Activity: As Tolerated Driving: Do Not Drive Showering/Bathing: May Shower Notify Provider of: Fever, Increased Pain, Swelling and Redness - Discharge Plan *PRESCRIPTION DRUG MONITORING PROGRAM REVIEWED*: Not Applicable *COPY OF PRESCRIPTION DRUG MONITORING REPORT IN PATIENT EVANGELISTA: Not Applicable Home Medications: Home Meds Aspirin 81 mg PO DAILY 03/24/15 [History] Diltiazem HCl [Diltiazem 24Hr ER] 240 mg PO DAILY 03/24/15 [History] Lisinopril [Prinivil] 5 mg PO DAILY 03/24/15 [History] SitaGLIPtin [Januvia] 100 mg PO DAILY 03/24/15 [History] Acetaminophen [Tylenol] 650 mg PO Q6HR PRN 10 Days #40 cup 07/11/20 [Rx] Acetaminophen/oxyCODONE [Percocet 325-5 MG] 1 each PO Q8HR PRN 5 Days #15 tab [Rx] Acetaminophen [Tylenol] 325 mg PO Q4H PRN tablet 07/14/20 [Rx] Oxygen Therapy Mode: Room Air Forms: ED Department Discharge Referrals: Mariann Hobson DO [Primary Care Provider] - - Discharge Summary/Plan Comment DC Time >30 min.: No Discharge Summary/Plan Comment: Patient was admitted for shortness of breath status post fall 3 days prior causing right humeral fracture. Chest x-ray and CT angio confirmed no pulmonary pathology or PE. Patient was admitted for observation thought to be possibly splinting due to pain in shoulder, pain was controlled with medication, patient was observed overnight. Remained stable, with no new concerns this morning. Patient was previously prescribed 06/15/2024 oxycodone for pain management may continue to use post discharge. Patient has been referred to orthopedics at [facility] in [facility]. Patient is to closely follow-up with her PCP and orthopedic physician. Patient is advised to return to the hospital in the event she develop any severe pain, shortness of breath, palpitations, dizziness or any worsening of her symptoms. - Patient Data Vitals - Most Recent: Last Vital Signs Temp 97.1 F 07/14/20 08:00 Pulse 89 07/14/20 08:17 Resp 20 07/14/20 08:00 BP 129/60 07/14/20 08:17 Pulse Ox 91 L 07/14/20 08:00 Weight - Most Recent: 182 lb 11.2 oz I&O - Last 24 hours: Intake & Output 07/13/20 07/14/20 07/14/20 22:59 06:59 14:59 Intake Total 100 Output Total 200 Balance -100 Lab Results - Last 24 hrs: Laboratory Results - last 24 hr 07/13/20 07/13/20 07/13/20 Range/Units 13:45 13:45 13:45 WBC 8.59 (4.0-11.0) K/uL RBC 4.42 (4.30-5.90) M/uL Hgb 13.7 (12.0-16.0) g/dL Hct 42.1 (36.0-46.0) % MCV 95.2 (80.0-98.0) fL MCH 31.0 (27.0-32.0) pg MCHC 32.5 (31.0-37.0) g/dL RDW Std Deviation 49.1 (28.0-62.0) fl RDW Coeff of Jose 14 (11.0-15.0) % Plt Count 221 (150-400) K/uL MPV 9.80 (7.40-12.00) fL Neut % (Auto) 70.1 (48.0-80.0) % Lymph % (Auto) 14.0 L (16.0-40.0) % [place] % (Auto) 10.6 (0.0-15.0) % Eos % (Auto) 4.7 (0.0-7.0) % Baso % (Auto) 0.6 (0.0-1.5) % Neut # (Auto) 6.0 H (1.4-5.7) K/uL Lymph # (Auto) 1.2 (0.6-2.4) K/uL [place] # (Auto) 0.9 H (0.0-0.8) K/uL Eos # (Auto) 0.4 (0.0-0.7) K/uL Baso # (Auto) 0.1 (0.0-0.1) K/uL Nucleated RBC % 0.0 /100WBC Nucleated RBCs # 0 K/uL INR APTT (18.6-31.3) SEC D-Dimer, Quantitative (0.0-0.50) mg/L FEU Sodium 138 (136-145) mmol/L Potassium 4.2 (3.5-5.1) mmol/L Chloride 101 (98-107) mmol/L Carbon Dioxide 24.9 (21.0-32.0) mmol/L BUN 8 (7.0-18.0) mg/dL Creatinine 0.7 (0.6-1.0) mg/dL Est Cr Clr Drug Dosing 59.21 mL/min Estimated GFR (MDRD) > 60.0 ml/min Glucose 94 (74-106) mg/dL POC Glucose (70-99) mg/dL Calcium 9.7 (8.5-10.1) mg/dL Magnesium 1.6 L (1.8-2.4) mg/dL Total Bilirubin 0.4 (0.2-1.0) mg/dL AST 20 (15-37) IU/L ALT 22 (14-63) IU/L Alkaline Phosphatase 125 H (46-116) U/L Troponin I < 0.050 (0.000-0.056) ng/mL B-Natriuretic Peptide 3 (<100) PG/ML Total Protein 8.0 (6.4-8.2) g/dL Albumin 3.5 (3.4-5.0) g/dL Globulin 4.5 H (2.6-4.0) g/dL Albumin/Globulin Ratio 0.8 L (0.9-1.6) SARS-CoV-2 RNA (MARIA INES) (NEGATIVE) 07/13/20 07/13/20 07/13/20 Range/Units 14:08 16:35 18:19 WBC (4.0-11.0) K/uL RBC (4.30-5.90) M/uL Hgb (12.0-16.0) g/dL Hct (36.0-46.0) % MCV (80.0-98.0) fL MCH (27.0-32.0) pg MCHC (31.0-37.0) g/dL RDW Std Deviation (28.0-62.0) fl RDW Coeff of Jose (11.0-15.0) % Plt Count (150-400) K/uL MPV (7.40-12.00) fL Neut % (Auto) (48.0-80.0) % Lymph % (Auto) (16.0-40.0) % [place] % (Auto) (0.0-15.0) % Eos % (Auto) (0.0-7.0) % Baso % (Auto) (0.0-1.5) % Neut # (Auto) (1.4-5.7) K/uL Lymph # (Auto) (0.6-2.4) K/uL [place] # (Auto) (0.0-0.8) K/uL Eos # (Auto) (0.0-0.7) K/uL Baso # (Auto) (0.0-0.1) K/uL Nucleated RBC % /100WBC Nucleated RBCs # K/uL INR 0.99 APTT 26.0 (18.6-31.3) SEC D-Dimer, Quantitative 1.39 H (0.0-0.50) mg/L FEU Sodium (136-145) mmol/L Potassium (3.5-5.1) mmol/L Chloride (98-107) mmol/L Carbon Dioxide (21.0-32.0) mmol/L BUN (7.0-18.0) mg/dL Creatinine (0.6-1.0) mg/dL Est Cr Clr Drug Dosing mL/min Estimated GFR (MDRD) ml/min Glucose (74-106) mg/dL POC Glucose 114 H (70-99) mg/dL Calcium (8.5-10.1) mg/dL Magnesium (1.8-2.4) mg/dL Total Bilirubin (0.2-1.0) mg/dL AST (15-37) IU/L ALT (14-63) IU/L Alkaline Phosphatase (46-116) U/L Troponin I (0.000-0.056) ng/mL B-Natriuretic Peptide (<100) PG/ML Total Protein (6.4-8.2) g/dL Albumin (3.4-5.0) g/dL Globulin (2.6-4.0) g/dL Albumin/Globulin Ratio (0.9-1.6) SARS-CoV-2 RNA (MARIA INES) NEGATIVE (NEGATIVE) 07/14/20 07/14/20 Range/Units 06:35 06:35 WBC 9.77 (4.0-11.0) K/uL RBC 3.88 L (4.30-5.90) M/uL Hgb 11.9 L (12.0-16.0) g/dL Hct 37.4 (36.0-46.0) % MCV 96.4 (80.0-98.0) fL MCH 30.7 (27.0-32.0) pg MCHC 31.8 (31.0-37.0) g/dL RDW Std Deviation 50.5 (28.0-62.0) fl RDW Coeff of Jose 14 (11.0-15.0) % Plt Count 219 (150-400) K/uL MPV 9.80 (7.40-12.00) fL Neut % (Auto) (48.0-80.0) % Lymph % (Auto) (16.0-40.0) % [place] % (Auto) (0.0-15.0) % Eos % (Auto) (0.0-7.0) % Baso % (Auto) (0.0-1.5) % Neut # (Auto) (1.4-5.7) K/uL Lymph # (Auto) (0.6-2.4) K/uL [place] # (Auto) (0.0-0.8) K/uL Eos # (Auto) (0.0-0.7) K/uL Baso # (Auto) (0.0-0.1) K/uL Nucleated RBC % 0.0 /100WBC Nucleated RBCs # 0 K/uL INR APTT (18.6-31.3) SEC D-Dimer, Quantitative (0.0-0.50) mg/L FEU Sodium 137 (136-145) mmol/L Potassium 4.2 (3.5-5.1) mmol/L Chloride 102 (98-107) mmol/L Carbon Dioxide 27.0 (21.0-32.0) mmol/L BUN 10 (7.0-18.0) mg/dL Creatinine 0.8 (0.6-1.0) mg/dL Est Cr Clr Drug Dosing 51.81 mL/min Estimated GFR (MDRD) > 60.0 ml/min Glucose 129 H (74-106) mg/dL POC Glucose (70-99) mg/dL Calcium 8.7 (8.5-10.1) mg/dL Magnesium (1.8-2.4) mg/dL Total Bilirubin 0.4 (0.2-1.0) mg/dL AST 13 L (15-37) IU/L ALT 18 (14-63) IU/L Alkaline Phosphatase 107 (46-116) U/L Troponin I (0.000-0.056) ng/mL B-Natriuretic Peptide (<100) PG/ML Total Protein 7.2 (6.4-8.2) g/dL Albumin 3.2 L (3.4-5.0) g/dL Globulin 4.0 (2.6-4.0) g/dL Albumin/Globulin Ratio 0.8 L (0.9-1.6) SARS-CoV-2 RNA (MARIA INES) (NEGATIVE) Med Orders - Current: Current Medications Acetaminophen (Acetaminophen 325 Mg Tab) 325 mg PO Q4H PRN PRN Reason: Pain Last Admin: 07/14/20 09:37 Dose: 325 mg Documented by: Aspirin (Aspirin 81 Mg Tab.Chew) 81 mg PO DAILY [facility] Last Admin: 07/14/20 08:13 Dose: 81 mg Documented by: Dextrose/Water (50% Dextrose In Water 50 Ml Syringe) 50 ml IV ASDIRECTED PRN PRN Reason: Hypoglycemia Diltiazem HCl (Diltiazem 120 Mg Cap.Cd) 240 mg PO DAILY [facility] Last Admin: 07/14/20 08:17 Dose: 240 mg Documented by: Enoxaparin Sodium (Enoxaparin 40 Mg/0.4 Ml Syringe) 40 mg SUBCUT Q24H [facility] Last Admin: 07/13/20 19:07 Dose: 40 mg Documented by: Glucagon (Glucagon,Human Recombinant 1 Mg Vial) 1 mg IM ASDIRECTED PRN PRN Reason: Hypoglycemia Pantoprazole Sodium 40 mg/ (Sodium Chloride) 10 mls @ 300 mls/hr IV DAILY [facility] Last Admin: 07/14/20 08:20 Dose: 300 mls/hr Documented by: Insulin Aspart (Insulin Aspart 100 Units/Ml 3 Ml Pen) 0 unit SUBCUT TIDAC [facility]; Protocol Last Admin: 07/14/20 08:12 Dose: Not Given Documented by: Lisinopril (Lisinopril 5 Mg Tab) 5 mg PO DAILY [facility] Last Admin: 07/14/20 08:13 Dose: 5 mg Documented by: Morphine Sulfate (Morphine 2 Mg/Ml Syringe) 2 mg IVPUSH Q4H PRN PRN Reason: Pain Ondansetron HCl (Ondansetron 4 Mg/2 Ml Sdv) 4 mg IVPUSH Q4H PRN PRN Reason: NAUSEA Oxycodone HCl (Oxycodone 5 Mg Tab) 5 mg PO Q4H PRN PRN Reason: Pain Last Admin: 07/14/20 03:43 Dose: 5 mg Documented by: Sodium Chloride (Sodium Chloride 0.9% 10 Ml Syringe) 10 ml FLUSH ASDIRECTED PRN PRN Reason: Keep Vein Open Last Admin: 07/13/20 13:40 Dose: 10 ml Documented by: Sodium Chloride (Sodium Chloride 0.9% 2.5 Ml Syringe) 2.5 ml FLUSH ASDIRECTED PRN PRN Reason: Keep Vein Open Last Admin: 07/13/20 13:40 Dose: 2.5 ml Documented by: Discontinued Medications Acetaminophen (Acetaminophen 500 Mg Tab) 1,000 mg PO ONETIME ONE Stop: 07/13/20 13:56 Last Admin: 07/13/20 14:10 Dose: 1,000 mg Documented by: Enoxaparin Sodium (Enoxaparin 40 Mg/0.4 Ml Syringe) 40 mg SUBCUT Q24H [facility] Last Admin: 07/13/20 19:59 Dose: Not Given Documented by: Sodium Chloride (Normal Saline) 1,000 mls @ 999 mls/hr IV .Bolus ONE Stop: 07/13/20 15:53 Last Admin: 07/13/20 15:02 Dose: 999 mls/hr Documented by: Insulin Human Regular (Insulin Regular, Human 100 Units/Ml 10 Ml Vial) 0 unit SUBCUT BIDAC JONA; Protocol Iopamidol (Iopamidol 755 Mg/Ml 500 Ml Multipack Bottle) 100 ml IVPUSH ONETIME STA Stop: 07/13/20 15:39 Last Admin: 07/13/20 15:39 Dose: 100 ml Documented by: Lorazepam (Lorazepam 2 Mg/Ml Sdv) 0.5 mg IVPUSH ONETIME ONE Stop: 07/13/20 16:35 Last Admin: 07/13/20 16:53 Dose: 0.5 mg Documented by: Morphine Sulfate (Morphine 4 Mg/Ml Syringe) 4 mg IVPUSH ONETIME ONE Stop: 07/13/20 14:45 Last Admin: 07/13/20 15:43 Dose: Not Given Documented by: Morphine Sulfate (Morphine 4 Mg/Ml Syringe) 4 mg IVPUSH ONETIME ONE Stop: 07/13/20 15:07 Last Admin: 07/13/20 15:14 Dose: 4 mg Documented by: Non-Formulary Medication (Diltiazem Hcl [Diltiazem 24hr Er]) 240 mg PO DAILY [facility] Ondansetron HCl (Ondansetron 4 Mg/2 Ml Sdv) 4 mg IVPUSH ONETIME ONE Stop: 07/13/20 15:41 Last Admin: 07/13/20 15:43 Dose: 4 mg Documented by: Oxycodone/Acetaminophen (Acetaminophen/Oxycodone 325-5 Mg Tab) 1 tab PO Q6H PRN PRN Reason: PAIN Last Admin: 07/13/20 19:07 Dose: 1 tab Documented by:
[2020-07-14 12:05] VITALS: BP 104/48; PULSE 71
== END 2020-07-14 14:00 | disposition home or self-care (01) ==
LOC: MW.ED 13:30 → MW.MS 16:43
PROVIDERS: ADMIT Internal Medicine; ATTEND Internal Medicine
DX: R06.02 Shortness of breath (principal); E11.9 Type 2 diabetes mellitus without complications; I10 Essential (primary) hypertension; I25.10 Atherosclerotic heart disease of native coronary artery without angina pectoris; E78.00 Pure hypercholesterolemia, unspecified; E03.9 Hypothyroidism, unspecified; I48.91 Unspecified atrial fibrillation; S42.401A Unspecified fracture of lower end of right humerus, initial encounter for closed fracture; Z20.822 Contact with and (suspected) exposure to COVID-19; Z91.040 Latex allergy status; Z79.82 Long term (current) use of aspirin
CPT/HCPCS: 36415; 70450; 71045; 71275; 72125; 80053; 82947; 83735; 83880; 84484; 85025; 85027; 85379; 85610; 85730; 93005; 96372; 96374; 96375; 99285; A9270; C9113; G0378; J1650; J2060; J2270; J2405; J7030; Q9967; U0002